=== PATIENT | female | born 1935 | race Caucasian/White ===

== ENCOUNTER → 2016-08-08 | Outpatient (CLI) | payer OTHER, MEDICAID | LOC: BMCIMAGING 09:01 | DX: Z12.31 Encounter for screening mammogram for malignant neoplasm of breast (principal) | CPT/HCPCS: G0202 ==

== ENCOUNTER 2017-09-16 13:13 | Inpatient (IN) | payer OTHER, MEDICAID ==
--- NOTE | 2017-09-16 13:08 | EDPHY ---
H & P Time Seen by Provider: 09/16/17 13:30 Constitutional: Initial Vital Signs Temperature (C) 37 C 09/16/17 13:13 Heart Rate 67 09/16/17 13:13 Respiratory Rate 16 09/16/17 13:13 Blood Pressure 150/62 H 09/16/17 13:13 O2 Sat (%) 87 L 09/16/17 13:13 O2 Delivery Mode Room Air O2 (L/minute) 4 Allergies/Adverse Reactions: Penicillins Allergy (Verified 03/28/17 11:17) Rash Home Medications: Medication Instructions Recorded Acetaminophen [Tylenol ES 500 mg 1,000 mg PO TID PRN 09/16/17 (*)] Carbidopa/Levodopa 0.5 each PO TID 09/16/17 [Carbidopa-Levodopa 25-100 Tab] Cholestyramine/Sucrose [Questran] 4 gm PO DAILY 09/16/17 Fluticasone Nasal [Flonase Nasal 1 spray EACHNARE DAILY 09/16/17 [place]] Lisinopril [Lisinopril] 20 mg PO DAILY 09/16/17 Loratadine 10 mg PO DAILY PRN 09/16/17 Metoprolol Tartrate [Metoprolol 12.5 mg PO BID 09/16/17 Tartrate] Tears/Dextran 70/Hypromellose 2 drop EACHEYE DAILY 09/16/17 [Natural Balance Tears (*)] Medical Decision Making - Diagnostics Imaging Results: Imaging Impressions Shoulder X-Ray 09/16/17 13:39 Impression: 1. Posterior dislocation of the right humeral head suspected. Findings discussed with Sushil Bautista MD at 15:28 hour, 09/16/2017. Hip X-Ray 09/16/17 13:40 Impression: 1. Complex intertrochanteric right hip fracture with fracture fragment also of the greater and lesser trochanter. Shoulder X-Ray 09/16/17 15:42 Impression: 1. No evidence of dislocation of the right humeral head, however, there is suspicion of possible fracture lines. Consider CT of the right shoulder for further characterization. Findings discussed with Sushil Bautista MD at 16:07 hour, 09/16/2017. Imaging: Discussed imaging studies w/ call worker Radiologist, I viewed and interpreted images myself ED Course/Re-evaluation: CHIEF COMPLAINT: Fall HISTORY OF PRESENT ILLNESS: This patient is an 81 year old female arriving via EMS complaining of right hip and right shoulder pain secondary to a fall earlier today. She is not sure why she fell, and denies tripping over any objects. Patient states her sister thinks this may be due to her medications, but she is unable to elucidate further on this. HPI limited as patient is a poor historian. REVIEW OF SYSTEMS: A 10 point review of systems was performed and is negative with the exception of the elements mentioned in the history of present illness. PHYSICAL EXAM: HR, BP, O2 Sat, RR. Temp noted General Appearance: Alert, well hydrated, appropriate, and non-toxic appearing. Head: Atraumatic without scalp tenderness or obvious injury Eyes: Pupils equal, round, reactive to light and accommodation, EOMI, no trauma , no injection. Ears: Clear bilaterally, no perforation, normal landmarks Nose: Atraumatic, no rhinorrhea, clear. Throat: There is no erythema or exudates, no lesions, normal tonsils, mucus membranes moist. Neck: Supple, 2+ carotid upstroke, nontender, no lymphadenopathy. Respiratory: No retractions, no distress, no wheezes, and no accessory muscle use. Lungs are clear to auscultation bilaterally. Cardiovascular: Regular rate and rhythm, no murmurs, rubs, or gallops. Bilateral carotid, radial, dorsalis pedis, and posterior tibial pulses intact. Good capillary refill all extremities. Gastrointestinal: Abdomen is soft, nontender, non-distended, no masses, no rebound, no guarding, no peritoneal signs. Musculoskeletal: Tenderness and pain with ROM to right hip and right shoulder. Neurological: Alert, appropriate, and interactive. The patient has normal DTRs and non-focal cranial nerves, motor, sensory, and cerebellar exam. Skin: No rashes, good turgor, no nodules on palpation. Past medical history: Hypertension. Diabetes Mellitus. Past surgical history: Noncontributory. Family history: Noncontributory. Social history: Lives at [facility]. Sister at bedside. DIFFERENTIAL DIAGNOSIS: The differential diagnosis for the patient's trauma included but was not limited to intracranial injury, long bone and pelvic bone fractures, spinal injury, intra-abdominal injury, and intra-thoracic injury. MEDICAL DECISION MAKIN81 y/o female presents with right shoulder and hip pain secondary to a fall. She is unable to determine the cause of her fall, so I cannot rule out syncope at this time. Plan for EKG, labs including CBC, chemistries, troponin, coag. Plan for x-ray of right hip and right shoulder. Plan to administer 0.5mg IV Dilaudid and 4mg IV Zofran for pain relief. Laboratory studies within normal limits. Reviewed x-ray studies. Evidence of right intertrochanteric fracture with lesser and greater trochanter involvement. Additionally, possible shoulder dislocation noted. 15:[address] Mckeon, radiologist. He concurs with possible shoulder dislocation. On reexamination, the patient is moving well, and clinically does not present with dislocation. Plan to consult with orthopedics. Given the patient's presentation, I will not attempt any reduction in the emergency department at this time. 15:[address] Dumas, orthopedic surgeon. He will consult. Plan for additional axillary shoulder x-ray. Axillary shoulder x-ray shows no evidence of dislocation. Possible occult fracture to right humeral head. Patient last PO was around 8:00am this morning. Dr. Dumas will take the patient to the OR for reduction and stabilization of her hip fracture. She will be admitted for perioperative management. 16:09 Dr. Oviedo accepts admission for perioperative management. - Data Points Laboratory Results: Laboratory Results 09/16/17 15:45 09/16/17 15:45 09/16/17 09/16/17 09/16/17 15:45 15:45 15:45 WBC 14.78 10^3/uL H 10^3/uL (3.80-9.50) RBC 4.70 10^6/uL 10^6/uL (4.18-5.33) Hgb 14.0 g/dL g/dL (12.6-16.3) Hct 41.3 % % (38.0-47.0) MCV 87.9 fL fL (81.5-99.8) MCH 29.8 pg pg (27.9-34.1) MCHC 33.9 g/dL g/dL (32.4-36.7) RDW 14.1 % % (11.5-15.2) Plt Count 193 10^3/uL 10^3/uL (150-400) MPV 9.5 fL fL (8.7-11.7) Neut % (Auto) Not Reported Lymph % (Auto) Not Reported [place] % (Auto) Not Reported Eos % (Auto) Not Reported Baso % (Auto) Not Reported Nucleat RBC Rel Count 0.0 % % (0.0-0.2) Absolute Neuts (auto) Not Reported Absolute Lymphs (auto) Not Reported Absolute Monos (auto) Not Reported Absolute Eos (auto) Not Reported Absolute Basos (auto) Not Reported Absolute Nucleated RBC 0.00 10^3/uL 10^3/uL (0-0.01) Immature Gran % Not Reported Seg Neutrophils % 81 % % Band Neutrophils % 10 % % Lymphocytes % 4 % % Monocytes % 5 % % Immature Gran # Not Reported Absolute Seg Neuts 11.97 10^/uL H 10^/uL (1.70-6.50) Absolute Band Neuts 1.48 10^3/uL H 10^3/uL (0.00-0.70) Absolute Lymphocytes 0.59 10^3/uL L 10^3/uL (1.00-3.00) Absolute Monocytes 0.74 10^3/uL 10^3/uL (0.30-0.80) Platelet Estimate ADEQUATE (ADEQ) Polychromasia 1+ H Tear Drop Cells 1+ H PT 14.2 SEC SEC (12.0-15.0) INR 1.08 (0.83-1.16) APTT 24.5 SEC SEC (23.0-38.0) Sodium 136 mEq/L mEq/L (135-145) Potassium 4.4 mEq/L mEq/L (3.5-5.2) Chloride 99 mEq/L mEq/L (97-110) Carbon Dioxide 27 mEq/l mEq/l (22-31) Anion Gap 10 mEq/L mEq/L (8-16) BUN 10 mg/dL mg/dL (7-23) Creatinine 0.6 mg/dL mg/dL (0.6-1.0) Estimated GFR > 60 Glucose 145 mg/dL H mg/dL (70-100) Calcium 8.9 mg/dL mg/dL (8.5-10.4) Specimen Hemolysis 09/16/17 09/16/17 09/16/17 15:17 15:17 15:17 WBC REJ RBC Not Reported Hgb Not Reported Hct Not Reported MCV Not Reported MCH Not Reported MCHC Not Reported RDW Not Reported Plt Count Not Reported MPV Not Reported Neut % (Auto) Not Reported Lymph % (Auto) Not Reported [place] % (Auto) Not Reported Eos % (Auto) Not Reported Baso % (Auto) Not Reported Nucleat RBC Rel Count Not Reported Absolute Neuts (auto) Not Reported Absolute Lymphs (auto) Not Reported Absolute Monos (auto) Not Reported Absolute Eos (auto) Not Reported Absolute Basos (auto) Not Reported Absolute Nucleated RBC Not Reported Immature Gran % Not Reported Seg Neutrophils % Band Neutrophils % Lymphocytes % Monocytes % Immature Gran # Not Reported Absolute Seg Neuts Absolute Band Neuts Absolute Lymphocytes Absolute Monocytes Platelet Estimate Polychromasia Tear Drop Cells PT REJ INR REJ APTT REJ Sodium REJ Potassium Not Reported Chloride Not Reported Carbon Dioxide Not Reported Anion Gap Not Reported BUN Not Reported Creatinine SET UP INSPECTOR Estimated GFR SET UP INSPECTOR Glucose SET UP INSPECTOR Calcium SET UP INSPECTOR Specimen Hemolysis 145 Medications Given: Discontinued Medications Bupivacaine HCl (Sensorcaine 0.5% Vial) Confirm Administered Dose 30 ml .ROUTE .STK-MED ONE Stop: 09/16/17 17:54 Last Admin: 09/16/17 17:53 Dose: 25 ml Fentanyl (Sublimaze) 25 - 100 mcg IVP Q5M PRN PRN Reason: PACU, IMMEDIATE Pain control Stop: 09/16/17 19:17 Last Admin: 09/16/17 18:43 Dose: 25 mcg Hydromorphone HCl (Dilaudid) 0.5 mg IVP EDNOW ONE Stop: 09/16/17 14:01 Last Admin: 09/16/17 14:04 Dose: 0.5 mg Cefazolin Sodium (Cefazolin Syringe) 2 gm in 20 mls @ 200 mls/hr IVP ONCALL ONE Stop: 09/16/17 17:05 Last Admin: 09/16/17 17:07 Dose: 20 mls Ondansetron HCl (Zofran) 4 mg IVP EDNOW ONE Stop: 09/16/17 14:05 Last Admin: 09/16/17 14:04 Dose: 4 mg Ropivacaine (Naropin) Confirm Administered Dose 20 mg EP .STK-MED ONE Stop: 09/16/17 16:21 Last Admin: 09/16/17 17:51 Dose: 20 mg Departure - Departure Disposition: To OP Cath/Surgery Clinical Impression: Fall Qualifiers: Encounter type: initial encounter Qualified Code(s): W19.XXXA - Unspecified fall, initial encounter Intertrochanteric fracture of right hip Qualifiers: Encounter type: initial encounter Fracture type: closed Fracture alignment: displaced Qualified Code(s): S72.141A - Displaced intertrochanteric fracture of right femur, initial encounter for closed fracture Shoulder fracture, right Qualifiers: Encounter type: initial encounter Fracture type: closed Qualified Code(s): S42.91XA - Fracture of right shoulder girdle, part unspecified, initial encounter for closed fracture Condition: Fair
[2017-09-16] MEDS ORDERED: HYDROmorphONE/DILAUDID 2 MG/ML INJ IVP ONE (14:00)
[2017-09-16] MEDS ORDERED: ONDANSETRON 4 MG/2 ML VIAL ONE (14:03)
[2017-09-16] MEDS ORDERED: ONDANSETRON 4 MG/2 ML VIAL IVP ONE (14:04)
--- NOTE | 2017-09-16 14:07 | CPEKG ---
Heart Rate: 127 RR Interval: 472 P-R Interval: 169 QRSD Interval: 96 QT Interval: 404 QTC Interval: 588 P Hamill: 0 QRS Hamill: -18 T Wave Hamill: 98 EKG Severity - ABNORMAL ECG - EKG Impression: SINUS TACHYCARDIA EKG Impression: MULTIFORM VENTRICULAR PREMATURE COMPLEXES EKG Impression: PROBABLE LEFT ATRIAL ABNORMALITY EKG Impression: BORDERLINE LEFT AXIS DEVIATION EKG Impression: NONSPECIFIC T ABNORMALITIES, LATERAL LEADS EKG Impression: BORDERLINE PROLONGED QT INTERVAL Electronically Signed By: Aydee Da Silva 16-Sep-2017 22:49:43
[2017-09-16 16:00] LABS: PLATELET COUNT 193 10^3/uL (150-400)
[2017-09-16 16:04] LABS: INR 1.08 (0.83-1.16); PROTIME(PATIENT) 14.2 SEC (12.0-15.0)
[2017-09-16] MEDS ORDERED: ROPIVACAINE HCL 20 MG/10 ML INJ EP ONE (16:20)
--- NOTE | 2017-09-16 16:42 | PDANEPAE ---
ANE Past Medical History - Pulmonary History Hx Oxygen in Use at Home: No Hx Sleep Apnea: No - Endocrine History Hx Diabetes: Yes - Chronic Pain History Chronic Pain: Yes (RT Shoulder) ANE Review of Systems Review of Systems: ANE Patient History - Allergies Allergies/Adverse Reactions: Penicillins Allergy (Verified 03/28/17 11:17) Rash - Home Medications Home Medications: Acetaminophen [Tylenol ES 500 mg (*)] 1,000 mg PO TID PRN 09/16/17 [Last Taken Unknown] Carbidopa/Levodopa [Carbidopa-Levodopa 25-100 Tab] 0.5 each PO TID 09/16/17 [ Last Taken 09/16/17 12:00] Cholestyramine/Sucrose [Questran] 4 gm PO DAILY 09/16/17 [Last Taken 09/16/17] Fluticasone Nasal [Flonase Nasal [place]] 1 spray EACHNARE DAILY 09/16/17 [Last Taken 09/16/17] Lisinopril [Lisinopril] 20 mg PO DAILY 09/16/17 [Last Taken 09/16/17 08:00] Loratadine 10 mg PO DAILY PRN 09/16/17 [Last Taken Unknown] Metoprolol Tartrate [Metoprolol Tartrate] 12.5 mg PO BID 09/16/17 [Last Taken 08:00] Tears/Dextran 70/Hypromellose [Natural Balance Tears (*)] 2 drop EACHEYE DAILY 09/16/17 [Last Taken 09/16/17] - NPO status NPO Since - Liquids (Date): 09/16/17 NPO Since - Liquids (Time): 08:00 NPO Since - Solids (Date): 09/16/17 NPO Since - Solids (Time): 08:00 - Smoking Hx Smoking Status: Never smoked ANE Labs/Vital Signs - Labs Result Diagrams: 09/16/17 15:45 09/16/17 15:45 - Vital Signs Blood Pressure: 138/90 Heart Rate: 72 Respiratory Rate: 16 O2 Sat (%): 99 Height: 172.72 cm Weight: 63.503 kg ANE Physical Exam - Airway Neck exam: FROM Mallampati Score: Class 2 Mouth exam: dentures - Pulmonary Pulmonary: no respiratory distress - Cardiovascular Cardiovascular: regular rate and rhythym - ASA Status ASA Status: II, E ANE Anesthesia Plan Anesthesia Plan: general endotracheal anesthesia
[2017-09-16] MEDS ORDERED: ceFAZolin 2 GM/DEXTROSE 100 ML IV ONE (16:44)
[2017-09-16] MEDS ORDERED: LIDOCAINE 2% 100 MG/5 ML SYR ONE (16:46)
[2017-09-16] MEDS ORDERED: fentaNYL 100 MCG/2 ML INJ ONE ×2 (16:46→18:26)
[2017-09-16] MEDS ORDERED: PROPOFOL 200 MG/20 ML VIAL ONE (16:46)
[2017-09-16] MEDS ORDERED: ROCURONIUM 50 MG/5 ML VIAL ONE (16:46)
[2017-09-16] MEDS ORDERED: ceFAZolin 2 GM/SWFI 2 GM/20 ML SYR IVP ONE (17:00)
--- NOTE | 2017-09-16 17:12 | PDGENHP ---
History and Physical History and Physical: CC: Hip pain after fall HISTORY: I am seeing this patient in the postoperative setting after her surgery for intertrochanteric hip fracture. She is awake and talking to me but is still somewhat sedated and I am only able to get a partial history. She does recall that she fell today but does not remember per anything about it. She is knows in the hospital within injury but she did not remember with the injury was as well I told her. At the moment her pain is very well controlled, she has no shortness of breath, no nausea, no chest pain, no neurologic symptoms or headache. She does not recall feeling ill in any way at home prior to her episode today. She admits to having a gait instability and having a walker that she does not use very often At the moment this is really all the review of systems or acute history that I am able to get When I reviewed her case with the ER physician Dr. Aydee Da Silva, in addition to her right hip pain there was concern for displacement of her right shoulder and some pain there although she was moving her shoulder okay. An x-ray had been done and did not show any dislocation but there is question of a humeral head fracture. ROS: A comprehensive 10 system review revealed no other significant findings PAST MEDICAL HISTORY: Comes from review of previous hospital stays here Hypertension Diabetes Dementia Gait instability with previous falls - ?? Parkinson's disease, is on Sinemet at home FAMILY MEDICAL HISTORY: Cancer, details unknown to me SOCIAL HISTORY: Nonsmoker MEDICATIONS: The patients list has been reconciled by our clinical pharmacist in the EMR. I have reviewed the list and ordered appropriate medicines. 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: Examination: General: alert, not yet very well oriented and I am not entirely sure what her baseline is as there is a history of dementia, still under some sedation from anesthesia at this point, looks relaxed Skin: warm, dry, good color, no rash HEENT: normal Neck: no mass or jvd Resps: relaxed Lungs: clear breath sounds Heart: regular, no murmur Abdomen: soft, nondistended, nontender, +BS, no mass Upper Extremities: normal Lower Extremities: no edema, warm, good distal pulses and moves both feet okay No Bleeding or bruising Neurologic: normal speech/language, normal director payer, no focal weakness IV site: looks normal LABORATORY DATA: White blood cell count 13718 otherwise unremarkable CBC Chemistry remarkable only for mildly elevated glucose RADIOLOGY STUDIES: I reviewed x-ray of her right hip showing intertrochanteric fracture with very mild displacement 12 LEAD EKG: ASSESSMENT: * inter trochanteric hip fracture after fall * hypertension * Stable blood pressures here now * diabetes type 2 * Mildly elevated blood glucose at present * chronic gait instability use falls leading to hospital admissions * ? If this is from Parkinson's as she does take Sinemet though takes no other medicines * So far tells me that she has a walker at home but does not use it much, can't recall if she was using it today * ? Of possible right humeral head fracture noted on x-ray there as there was some pain * Will need further assessment with CT scanning PLANS: -routine postop care after hip surgery -DVT prophylaxis -fall risk precautions, PT and OT -follow blood sugars and blood pressures closely -will arrange for CT scan of her right shoulder tomorrow to assess for possible fracture of humeral head I have reviewed the patient's case in detail with Dr. Aydee Da Silva I have reviewed the patient's past medical records as part of this assessment, including previous inpatient admission records and outpatient laboratory dated
[2017-09-16] MEDS ORDERED: DEXAMETHASONE 4 MG/ML VIAL ONE (17:25)
[2017-09-16] MEDS ORDERED: SUGAMMADEX SODIUM 200 MG/2 ML VIAL IVP ONE (17:48)
[2017-09-16] MEDS ORDERED: BUPIVACAINE 0.5% 30 ML SDV ONE (17:53)
[2017-09-16] MEDS ORDERED: NALOXONE HCL 0.4 MG/ML INJ IVP PRN (18:17)
[2017-09-16] MEDS ORDERED: ALBUTEROL 3 ML DEYVIAL IH PRN (18:17)
[2017-09-16] MEDS ORDERED: ONDANSETRON 4 MG/2 ML VIAL IVP PRN ×2 (18:17→23:13)
[2017-09-16] MEDS ORDERED: LABETALOL HCL 5 MG/ML 20 ML MDV IVP PRN (18:17)
[2017-09-16] MEDS ORDERED: ACETAMINOPHEN 325 MG TAB PO PRN ×2 (18:18→23:13)
--- NOTE | 2017-09-16 18:20 | POSTANESTH ---
Post Anesthetic Evaluation Cardiovascular Status: Similar to Pre-Op Cond Respiratory Status: Similar to Pre-op Cond. Level of Consciousness/Mental Status: Mildly Sleepy, Arousable Pain Control: Adequate, Prn Tx Ordered Nausea/Vomiting Control: Adequate, Prn Tx Ordered Complications Possibly Related to Anesthesia: None Noted
[2017-09-16] MEDS: fentaNYL 100 MCG/2 ML INJ IVP PRN ×2 (18:30→18:43)
[2017-09-16] MEDS ORDERED: D5W 1/2 NS W/ 20 KCl/L 1,000 ML IV SCH (18:30)
--- NOTE | 2017-09-16 18:39 | GCON ---
[f rep st] CONSULTATION ORTHOPEDIC ER CONSULT DATE OF CONSULTATION: 09/16/2017 CHIEF COMPLAINT: Right hip pain. DIAGNOSIS: Right intertrochanteric hip fracture with the lesser trochanter involvement. HISTORY OF PRESENT ILLNESS: Please see details of ER and admitting hospitalist H and P. An 81-year-old female who lives at [facility]. She had a fall today. Unknown mecha nical or syncopal. Brought by ambulance to the emergency room. X-rays were taken, which showed aN i ntertrochanteric hip fracture with lesser trochanteric involvement. There was also suspicion of an i ssue with her shoulder, but the axillary view showed an intact, non dislocated shoulder. She had goo d mobility. PHYSICAL EXAMINATION: Patient was examined at the bedside with her sister. Her sister is her proxy, Denise. Right hip was short and externally rotated. Left lower extremity had passive range of mo tion without pain and she had active range of motion of her bilateral upper extremities without any p ain. Abdomen was soft. Pelvis stable. IMAGING: Reviewed. IMPRESSION/RECOMMENDATION: Right hip intertrochanteric fracture. Risks, benefits, expectations, alt ernatives were discussed. Patient elected for operative intervention with the proxy. Thirty minutes at bedside. /[id number]/MODL
--- NOTE | 2017-09-16 19:19 | GOP ---
[f rep st] OPERATIVE REPORT DATE OF OPERATION: 09/16/2017 SURGEON: Ashley Dumas MD PREOPERATIVE DIAGNOSIS: Right intertrochanteric hip fracture with lesser trochanteric involvement. POSTOPERATIVE DIAGNOSIS: Right intertrochanteric hip fracture with lesser trochanteric involvement. PROCEDURE PERFORMED: Open reduction, internal fixation with intermedullary nail, trochanteric femora l nail. FINDINGS: ESTIMATED BLOOD LOSS: Minimal. INDICATIONS: Mechanical fall, right hip. Deemed medically appropriate for surgery. DESCRIPTION OF PROCEDURE: Patient identified in the preoperative holding area. Consent, laterality, and preoperative antibiotics were confirmed with the sister, Denise. The patient was brought into the operating room. General anesthesia on the gurney. Transferred over to the fracture table. All extremities well padded. Rain Hugger on the arms. The right hip had th e knee pointing up with the foot pointing up. The well leg was placed in 30 degrees abduction, 90 de grees knee flexion. Fluoroscopic films show anatomic reduction with just a little bit of traction. The right hip was prepped and draped in sterile fashion with a shower curtain. A surgical time-out w as performed. A standard lateral incision. Sharp dissection through the ITB band and glut max. Blunt finger disse ction down to the greater trochanter. Used a pin to find the tip of the greater trochanter into the femoral canal. We confirmed this on an AP, lateral, and a 20 degree lateral. We used an opening ranjan jenae, a ball-tip guidewire down to the distal femur. Measured to 380. We successively reamed by 1 mm up to a 13 mm reamer and chose a 12 mm x 380 mm nail. We placed the nail easily. Checked this unde r fluoroscopy. Put the cephalo medullary device in. Final fluoroscopic films were taken. Anatomic reduction. The wound was copiously washed out with 500 cc of warm normal saline. 30 cc of 0.5% Dar josephine were injected around the incision. Zero PDS, 2-0 PDS, 3-0 Monocryl, and rich. A waterproof dressing applied. IMPLANTS USED: Synthes trochanteric femoral nail, 380 mm length, 12 mm diameter. No distal interloc blanquita screw. COMPLICATIONS: None. TOTAL SURGICAL TIME: 60 minutes. DISPOSITION: Extubated and went to PACU in stable condition. /[id number]/MODL
[2017-09-16] MEDS ORDERED: ZOLPIDEM TARTRATE 5 MG TAB PO PRN (23:13)
[2017-09-16] MEDS ORDERED: ONDANSETRON DISINTEGRATING 4 MG TAB PO PRN (23:13)
[2017-09-16] MEDS ORDERED: CETIRIZINE 10 MG TAB PO PRN (23:16)
[2017-09-16] MEDS ORDERED: traMADol 50 MG TAB PO PRN (23:25)
[2017-09-16] MEDS: oxyCODONE IR 5 MG TAB PO PRN (23:59)
[2017-09-17] MEDS: oxyCODONE IR 5 MG TAB PO PRN ×3 (05:02→15:53)
[2017-09-17 05:22] LABS: PLATELET COUNT 206 10^3/uL (150-400)
[2017-09-17] MEDS: LISINOPRIL 20 MG TAB PO SCH (08:50)
[2017-09-17] MEDS: METOPROLOL TARTRATE 25 MG TAB PO SCH ×2 (08:51→21:12)
[2017-09-17] MEDS: CARBIDOPA/LEVODOPA 25 MG/100 MG TAB PO SCH ×3 (08:51→21:13)
[2017-09-17] MEDS: ENOXAPARIN 40 MG/0.4 ML SYR SC SCH (08:52)
--- NOTE | 2017-09-17 09:32 | HOSPPROG ---
Hospitalist Progress Note Assessment/Plan: Patient fell at home and sustained a right intertrochanteric hip fracture. Today is my 1st encounter with the patient. Chart reviewed. * inter trochanteric hip fracture after fall -status post ORIF and femoral nail placement. Postop day # 1. * hypertension -stable *Leukocytosis -fro, acute injury * diabetes type 2 -Mildly elevated blood glucose * chronic gait instability -on Sinemet, not sure if she has Parkinson -PT and OT to see *concern for r humeral head fracture noted on x ray reviewed CT / nothing acute noted *dvt prophylaxis: LMWH *Plan: repeat labs in a.m., mobilize, she is a DNR , she will need a SNF for rehab Subjective: Hayde said her hip hurts, says she has a good appetite. Objective: Vital Signs Temp Pulse Resp BP Pulse Ox 36.8 C 96 16 136/73 H 95 09/17/17 08:00 09/17/17 08:51 09/17/17 08:00 09/17/17 08:51 09/17/17 08:00 Laboratory Results 09/17/17 04:48 09/17/17 04:48 09/16/17 09/17/17 09/18/17 05:59 05:59 05:59 Intake Total 1080 Output Total 300 Balance 780 PT 14.2 SEC (12.0-15.0) 09/16/17 15:45 INR 1.08 (0.83-1.16) 09/16/17 15:45 - Physical Exam Constitutional: chronically ill appearing, No not in pain Eyes: PERRL Ears, Nose, Mouth, Throat: hard of hearing Cardiovascular: regular rate and rhythym Respiratory: no respiratory distress Skin: warm, other (right hip w swelling) Musculoskeletal: other (pain in right shoulder area but can extend her arm up and sideways) Neurologic: other (alert) Psychiatric: interacting appropriately, thought process linear, poor memory ICD10 Worksheet Patient Problems: Problems Problem Status Onset Fall Acute Intertrochanteric fracture of right hip Acute Shoulder fracture, right Acute Head injury Acute Urinary tract infection Acute
--- NOTE | 2017-09-17 10:31 | PDMN ---
Medical Necessity Medical necessity: Patient meets inpatient criteria per physician note and [facility] -615 Hip Fracture, Open Repair- 3 days postop - (ORIF with IM nail for R intertrochanteric hip fracture s/p fall; anticipated LOS > 2 midnights for post- op pain management, extensive PT/OT, MRI of poss R humeral head fracture noted on xray.)
--- NOTE | 2017-09-17 12:10 | WOCRNPDOC ---
WOCRN Advanced Assessment Note - Skin Integrity Problem, Advanced Assess Coccyx Pressure Injury Dressing Type: Open to Air Site Measurement - Head-to-Toe Length X Width X Depth (cm): 1x1x0 Pressure Injury Stage: Stage 1 Pressure Injury Present on Admit: Yes Skin Integrity Problem Comment: No need for wound care to follow. Due to immobility initate TAPS and turn back/left side Q2 hours. Cover with Mepilex. Reconsult if wound progresses/opens.
--- NOTE | 2017-09-17 14:11 | ASMTCMCOM ---
CM Note CM Note Notes: Reviewed chart and discussed w/RN. PT/OT recommending SNF. Pt normally lives at [facility]. Met w/pt and sister, Denise and Denise's . They are all in agreement w/SNF plan. Pt has some dementia, sister will look into facilities. Referrals sent to [facility], [facility], and [facility]. They are leaning towards [facility] as it is close to their house. PASRR completed. CM will follow. Date Signed: 09/17/2017 02:10 PM Electronically Signed By:Gaby Wharton RN
[2017-09-17] MEDS: TEARS/DEXTRAN 70/HYPROMELLOSE 15 ML OPHT.BTL EACHEYE SCH (14:43)
[2017-09-17] MEDS: FLUTICASONE NASAL 120 SPRAYS/16 GM MDI EACHNARE SCH (15:54)
--- NOTE | 2017-09-17 16:43 | SOAPPROG ---
SOAP Progress Note Assessment/Plan: Assessment/Plan: POD 1 - RIGHT inter troch. hip fx post fall Continue to manage pain Wound care team continue to address and treat stage 1 bed sore Under care of hospitalist team for HTN, diabetes type 2 Possible RUE fx; CT scan ordered by hospitalist team this morning, performed late morning today 09/17/17 16:40 09/17/17 16:43 Subjective: Patient c/o pain in RUE, R surgical site. States that she doesn't ever want this to happen again. Slight cognitive dysfunction though aware that her sister was present in the room; cooperative with dressing change and bed sore check. Asks for pain medication for fx pain Objective: Vital Signs Temp Pulse Resp BP Pulse Ox 36.6 C 89 16 136/78 H 97 09/17/17 15:37 09/17/17 15:37 09/17/17 15:37 09/17/17 15:37 09/17/17 15:37 Laboratory Results 09/17/17 04:48 09/17/17 04:48 09/16/17 09/17/17 09/18/17 05:59 05:59 05:59 Intake Total 1080 Output Total 300 Balance 780 PT 14.2 SEC (12.0-15.0) 09/16/17 15:45 INR 1.08 (0.83-1.16) 09/16/17 15:45 Dressing saturated with blood, bubbling Tegaderm Dressing changed (sterile); rich intact, no obvious dehis of wound TTP surgical thigh distal sensation intact distal pulses intact cap refill <2 sec RUE no obvious warmth, erythema, edema, skin compromise shoulder full FF, ABD 165 degrees pain-free TTP general shoulder region distal pulses intact AROM at wrist, elbow and shoulder ICD10 Worksheet Patient Problems: Problems Problem Status Onset Fall Acute Intertrochanteric fracture of right hip Acute Shoulder fracture, right Acute Head injury Acute Urinary tract infection Acute
[2017-09-18] MEDS: oxyCODONE IR 5 MG TAB PO PRN ×4 (04:26→18:28)
[2017-09-18] MEDS: LISINOPRIL 20 MG TAB PO SCH (09:09)
[2017-09-18] MEDS: METOPROLOL TARTRATE 25 MG TAB PO SCH ×2 (09:09→22:11)
[2017-09-18] MEDS: CARBIDOPA/LEVODOPA 25 MG/100 MG TAB PO SCH ×3 (09:09→22:11)
[2017-09-18] MEDS: TEARS/DEXTRAN 70/HYPROMELLOSE 15 ML OPHT.BTL EACHEYE SCH (09:11)
[2017-09-18] MEDS: FLUTICASONE NASAL 120 SPRAYS/16 GM MDI EACHNARE SCH (09:11)
[2017-09-18] MEDS: ENOXAPARIN 40 MG/0.4 ML SYR SC SCH (09:11)
[2017-09-18 10:24] LABS: PLATELET COUNT 189 10^3/uL (150-400)
--- NOTE | 2017-09-18 16:01 | ASMTCMCOM ---
CM Note CM Note Notes: Pt accepted at [facility], [facility] and [facility]; pt and sister choose [facility]. Voicemail left for Neida at [facility] ([phone]) updating her. CM to follow. D/c plan of care: [facility] SNF when medically stable Date Signed: 09/18/2017 04:00 PM Electronically Signed By:JACEY Mueller
--- NOTE | 2017-09-18 17:05 | HOSPPROG ---
Hospitalist Progress Note Assessment/Plan: Patient fell at home and sustained a right intertrochanteric hip fracture. * inter trochanteric hip fracture after fall -status post ORIF and femoral nail placement. Postop day # 2 * hypertension -stable *Leukocytosis -from acute injury -continues to be elevated, will monitor * diabetes type 2 -Mildly elevated blood glucose * chronic gait instability -on Sinemet, not sure if she has Parkinson -PT and OT seeing her *concern for r humeral head fracture noted on x ray reviewed CT / nothing acute noted *dvt prophylaxis: LMWH *Plan: repeat labs Subjective: Hayde says her r hip is tender. Glad to know her shoulder isn't fractured. Objective: Vital Signs Temp Pulse Resp BP Pulse Ox 36.9 C 95 18 144/87 H 94 09/18/17 16:00 09/18/17 16:00 09/18/17 16:00 09/18/17 16:00 09/18/17 16:00 Laboratory Results 09/18/17 10:16 09/18/17 10:16 09/17/17 09/18/17 09/19/17 05:59 05:59 05:59 Intake Total 1080 240 Output Total 300 Balance 780 240 PT 14.2 SEC (12.0-15.0) 09/16/17 15:45 INR 1.08 (0.83-1.16) 09/16/17 15:45 - Physical Exam Constitutional: chronically ill appearing Eyes: PERRL Ears, Nose, Mouth, Throat: hearing normal Cardiovascular: regular rate and rhythym, systolic murmur (left sternal border) Respiratory: no respiratory distress Gastrointestinal: normoactive bowel sounds Skin: warm Neurologic: other (alert, but only oriented to herself) Psychiatric: interacting appropriately, poor memory ICD10 Worksheet Patient Problems: Problems Problem Status Onset Fall Acute Intertrochanteric fracture of right hip Acute Shoulder fracture, right Acute Head injury Acute Urinary tract infection Acute
[2017-09-18] MEDS ORDERED: BISACODYL 10 MG SUPP PR PRN (17:06)
[2017-09-18] MEDS ORDERED: MAGNESIUM HYDROXIDE 30 ML UDCUP PO PRN (17:06)
[2017-09-18] MEDS ORDERED: LACTULOSE 20 GM/30 ML UDCUP PO PRN (17:06)
[2017-09-18] MEDS: ACETAMINOPHEN 500 MG TAB PO SCH (22:09)
[2017-09-18] MEDS: SENNOSIDES/DOCUSATE SODIUM TAB PO SCH (22:09)
[2017-09-19 05:32] LABS: PLATELET COUNT 194 10^3/uL (150-400)
[2017-09-19] MEDS: ACETAMINOPHEN 500 MG TAB PO SCH ×2 (08:03→15:14)
[2017-09-19] MEDS: LISINOPRIL 20 MG TAB PO SCH (08:07)
[2017-09-19] MEDS: ENOXAPARIN 40 MG/0.4 ML SYR SC SCH (08:07)
[2017-09-19] MEDS: CARBIDOPA/LEVODOPA 25 MG/100 MG TAB PO SCH ×2 (08:07→15:14)
[2017-09-19] MEDS: METOPROLOL TARTRATE 25 MG TAB PO SCH (08:08)
[2017-09-19] MEDS: SENNOSIDES/DOCUSATE SODIUM TAB PO SCH (08:09)
[2017-09-19] MEDS: oxyCODONE IR 5 MG TAB PO PRN ×2 (08:14→15:13)
[2017-09-19] MEDS: TEARS/DEXTRAN 70/HYPROMELLOSE 15 ML OPHT.BTL EACHEYE SCH (08:28)
[2017-09-19] MEDS: FLUTICASONE NASAL 120 SPRAYS/16 GM MDI EACHNARE SCH (08:30)
[2017-09-19] MEDS ORDERED: POLYETHYLENE GLYCOL 3350 17 GM PKT PO SCH (09:00)
[2017-09-19 11:17] VITALS: BP 114/72
--- NOTE | 2017-09-19 14:28 | HOSPPROG ---
Hospitalist Progress Note Assessment/Plan: Patient fell at home and sustained a right intertrochanteric hip fracture. * inter trochanteric hip fracture after fall -status post ORIF and femoral nail placement. Postop day # 3 * hypertension -stable *Leukocytosis -from acute injury * diabetes type 2 -Mildly elevated blood glucose * chronic gait instability -on Sinemet, not sure if she has Parkinson -PT and OT seeing her *concern for r humeral head fracture noted on x ray reviewed CT / nothing acute noted *dvt prophylaxis: LMWH *Plan: dc to [facility], patient is feeling well Subjective: Hayde feels well, has no complaits. Wants to go to rehab today Objective: Vital Signs Temp Pulse Resp BP Pulse Ox 37.0 C 90 16 114/72 96 09/19/17 08:05 09/19/17 08:05 09/19/17 08:05 09/19/17 11:17 09/19/17 08:05 Laboratory Results 09/19/17 04:28 09/19/17 04:28 09/18/17 09/19/17 09/20/17 05:59 05:59 05:59 Intake Total 440 700 Output Total 500 Balance -60 700 PT 14.2 SEC (12.0-15.0) 09/16/17 15:45 INR 1.08 (0.83-1.16) 09/16/17 15:45 - Physical Exam Constitutional: no apparent distress, appears nourished Eyes: PERRL Ears, Nose, Mouth, Throat: hearing normal Cardiovascular: regular rate and rhythym, systolic murmur Respiratory: no respiratory distress Skin: warm, other (drainage from right hip area) Musculoskeletal: generalized weakness Neurologic: AAOx3 Psychiatric: interacting appropriately, not anxious ICD10 Worksheet Patient Problems: Problems Problem Status Onset Fall Acute Intertrochanteric fracture of right hip Acute Shoulder fracture, right Acute Head injury Acute Urinary tract infection Acute
--- NOTE | 2017-09-19 14:35 | PDIAF ---
- Diagnosis Diagnosis: intertrochanteric hip fracture s/p repair Code Status: Do Not Resuscitate - Medication Management Discharge Medications: Medications to Continue on Transfer Carbidopa/Levodopa [Carbidopa-Levodopa 25-100 Tab] 0.5 each PO TID 09/16/17 [ Last Taken 09/16/17 12:00] Cholestyramine/Sucrose [Questran] 4 gm PO DAILY 09/16/17 [Last Taken 09/16/17] Fluticasone Nasal [Flonase Nasal [place]] 1 spray EACHNARE DAILY 09/16/17 [Last Taken 09/16/17] Lisinopril 20 mg PO DAILY 09/16/17 [Last Taken 09/16/17 08:00] Loratadine 10 mg PO DAILY PRN 09/16/17 [Last Taken Unknown] Metoprolol Tartrate 12.5 mg PO BID 09/16/17 [Last Taken 09/16/17 08:00] Tears/Dextran 70/Hypromellose [Natural Balance Tears (*)] 2 drop EACHEYE DAILY 09/16/17 [Last Taken 09/16/17] Acetaminophen [Tylenol ES 500 mg (*)] 1,000 mg PO TID tab 09/19/17 [Last Taken Unknown] Enoxaparin [Lovenox 40 MG (*)] 40 mg SC DAILY #18 syr 09/19/17 [Last Taken Unknown] Polyethylene Glycol 3350 [Miralax 17 gm (*)] 17 gm PO DAILY pkt 09/19/17 [Last Taken Unknown] Sennosides/Docusate Sodium [Senokot-S] 1 - 2 tab PO BID tab 09/19/17 [Last Taken Unknown] Tears/Dextran 70/Hypromellose [Natural Balance Tears (*)] 2 drop EACHEYE DAILY opht.btl 09/19/17 [Last Taken Unknown] oxyCODONE IR [Oxycodone Ir (*)] 5 - 10 mg PO Q3HRS PRN tab 09/19/17 [Last Taken Unknown] traMADol [Ultram 50 mg (*)] 50 mg PO Q6HRS PRN tab 09/19/17 [Last Taken Unknown ] Discharge Medications: Refer to the Discharge Home Medication list for PRN reason. PICC Care - Routine: N/A - Orders Services needed: Physical Therapy, Occupational Therapy Oxygen: 1 liter prn Diet Recommendation: no restrictions on diet Diet Texture: Regular Texture Diet Additional Instructions: activity per orthopedics/ f/u with Dr Dumas in 2 weeks cont Lovenox for 18 more days - Labs/Radiology BMP Date: 09/24/17 CBC w/diff Date: 09/24/17 - Follow Up Care Current Providers and Referrals: Patient,NotPresent [Unknown] - As per Instructions Ashley Dumas MD [Medical Doctor] -
--- NOTE | 2017-09-19 15:03 | ASMTCMCOM ---
CM Note CM Note Notes: Pt medically stable for d/c to [facility] SNF. Pt and sister updated stretcher transport arranged for 15:30. PCS completed and copy in chart. RN Merna called report. Date Signed: 09/19/2017 03:02 PM Electronically Signed By:JACEY Mueller
--- NOTE | 2017-09-19 15:22 | GDS ---
[f rep st] DISCHARGE SUMMARY DISCHARGE DIAGNOSES: 1. Intertrochanteric hip fracture after a fall, status post open reduction and internal fixation. 2. Hypertension. 3. Leukocytosis. 4. Diabetes type 2. 5. Chronic gait instability. 6. Initial concern for a right humeral head fracture noted on x-ray. CONSULTATION: Dr. Ashley Dumas. BRIEF HISTORY: The patient is a very sweet 81-year-old woman who lives at [facility]. She was at home, and she does not remember exactly how she fell, but she fell and sustained a hip fracture. There was also concern of a humeral head fracture. She had a CT scan of this, which did not indicate that. She has done quite well with her surgery, was able to get out of bed with assist today. She will further follow up with Dr. Dumas in the outpatient setting. HOSPITAL COURSE: 1. Intertrochanteric hip fracture after fall. She is status post ORIF and femoral nail placement. She is postop day #3, doing quite well. 2. Hypertension, stable. 3. Leukocytosis, improved. 4. Diabetes type 2. She has mildly elevated glucose levels. 5. Chronic gait instability. She is on Sinemet, very low dose. I am not sure if she has some underlying Parkinson's. 6. Concern for a right humeral head fracture. CT was reviewed. There is nothing acute noted. DISCHARGE CONDITION: Stable. Blood pressure is 114/72. Heart rate is 90. Respiratory rate is 16. O2 sats on 0.5 L are 96%. Temperature is 37 degrees Celsius. DISCHARGE MEDICATIONS: Please see the EMR. DISCHARGE INSTRUCTIONS: 1. To follow up with Dr. Dumas. 2. To continue the low molecular weight heparin for the next 18 days. The patient is not very mobile. 3. To follow her CBC and chemistry panel weekly. Greater than 30 minutes discharging and coordinating her care. /[id number]/MODL MTDD
--- NOTE | 2017-09-19 16:39 | ASDISCHSUM ---
Discharge Information Plan Status:SNF Medically Cleared to Leave: Discharge Date:09/19/2017 03:40 PM CM D/C Disposition:[facility] ADT D/C Disposition:[facility] Care Facility Projected Discharge Date:09/18/2017 11:00 AM Transportation at D/C:ALS/BLS Discharge Delay Reason: Follow-Up Date:09/18/2017 11:00 AM Discharge Slot: Final Diagnosis: Placement Information Referral Type:*Snf/SNF Referral ID:[id number] Provider Name:[facility] [place] Address 1:[address] Address 2: City:[place] Selection Factors: State:[place] Patient Contact Information Contact Name:HAILEY Relationship:Son Address: Home Phone: Work Phone: City: [facility] Phone: State/Zip Code:[place] Email: Financial Information Financial Class:Medicare Advantage Plans Primary Plan Desc:[facility] [place] Primary Plan Number:[id number] Secondary Plan Desc:[employer] [place] [place] Secondary Plan Number:[id number] Assessment Information [facility] CM Progress Note CM Note CM Note Notes: Reviewed chart and discussed w/RN. PT/OT recommending SNF. Pt normally lives at [facility]. Met w/pt and sister, Denise and Denise's . They are all in agreement w/SNF plan. Pt has some dementia, sister will look into facilities. Referrals sent to [facility], [facility], and [facility]. They are leaning towards [facility] as it is close to their house. PASRR completed. CM will follow. Date Signed: 09/17/2017 02:10 PM Electronically Signed By:Gaby Wharton RN [facility] CM Progress Note CM Note CM Note Notes: Pt accepted at [facility], [facility]; pt and sister choose [facility]. Artemio left for Neida at [facility] ([phone]) updating her. CM to follow. D/c plan of care: [facility] SNF when medically stable Date Signed: 09/18/2017 04:00 PM Electronically Signed By:JACEY Mueller [facility] CM Progress Note CM Note CM Note Notes: Pt medically stable for d/c to [facility]. Pt and sister updated stretcher transport arranged for 15:30. PCS completed and copy in chart. SASHA Bauman called report. Date Signed: 09/19/2017 03:02 PM Electronically Signed By:JACEY Mueller Intervention Information
== END 2017-09-19 15:40 | DRG 482 ==
LOC: EDUNIT# → EDBD → F3N 20:00
PROVIDERS: ADMIT Internal Medicine; ATTEND Family Medicine
PROC: 0QS606Z Reposition Right Upper Femur with Intramedullary Internal Fixation Device, Open Approach (ICD-10-PCS; principal; 2017-09-16 16:30)
DX: S72.141A Displaced intertrochanteric fracture of right femur, initial encounter for closed fracture (principal); W19.XXXA Unspecified fall, initial encounter; Y92.098 Other place in other non-institutional residence as the place of occurrence of the external cause; L89.151 Pressure ulcer of sacral region, stage 1; E11.9 Type 2 diabetes mellitus without complications; I10 Essential (primary) hypertension; F03.90 Unspecified dementia, unspecified severity, without behavioral disturbance, psychotic disturbance, mood disturbance, and anxiety; R26.81 Unsteadiness on feet; Z91.81 History of falling
CPT/HCPCS: 96374; 97162-GP; 97166-GO; 97530-GO; 97530-GP; 97535-GO; C1713; G8978-GP-CL; G8979-GP-CK; G8987-GO-CK; G8988-GO-CJ; J0690; J1100; J1170; J1650; J2001; J2405; J2704; J2795; J3010